=== PATIENT | male | born 1980 ===

== ENCOUNTER 2023-12-31 17:52 | Emergency (ER) | payer OTHER, SELFPAY ==
[2023-12-31 17:54] VITALS: BP 143/96
[2023-12-31] MEDS: DILAUDID 0.5 MG IV ×2 (18:52→19:53)
[2023-12-31] MEDS: ZOFRAN 4 MG IV (18:52)
--- NOTE | 2023-12-31 23:04 | ED.MUSCINJ ---
HPI-Injury
General
Chief Complaint: Musculo-Skeletal Complaint
Source: patient
Exam Limitations: none
Time Seen by Provider: 12/31/23 18:00
Nursing documentation reviewed up to this point in time: agreed with
Travel History
Have you had any contact with someone who has COVID-19?: No
Do you have any symptoms of coronavirus? Fever > 100 degrees, chills, cough, shortness of breath, sore throat, loss of taste or smell, muscle aches, or headache?: No
History of Present Illness-Injury
Is this injury a work related problem?: No
Is pt an associate of [facility]?: No
Initial Injury comments:
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 He fell backwards and twisted his ankle. Complains of pain and deformity to his right ankle. Injury occured just CUTTER OUT. Brought to ED via EMS for eval.
Past History
Past History
ED Past Medical History: Other (TBI)
ED Past Surgical History: None
Social History
Tobacco: Non-smoker
Alcohol: None
Drug: None
Review of Systems
Review of Systems
Allergies reviewed?: Yes
All Other Systems: ROS reviewed and negative except as documented in HPI and ROS
Constitutional: Reports no symptoms
EENT: Reports no symptoms
Respiratory: Reports no symptoms
Cardiac: Reports no symptoms
ABD/GI: Reports no symptoms
Musculoskeletal: Reports joint pain (Pain to right ankle)
Skin: Reports no symptoms
Neurological: Reports no symptoms
Psychiatric: Reports no symptoms
Musculoskeletal Injury Exam
Musculoskeletal Injury Exam
Right Ankle:
Pain with Movement?: Moderate
Tender to palpation?: Moderate
Soft tissue swelling?: Moderate
External deformity and angulation?: Moderate
Joint effusion?: None
Contusion?: None
Hematoma-local bleeding into tissue?: None
Strain- Sprain- Tear (Connective tissue injury)?: Moderate
Crepitus with movement?: No
Joint instability?: No
Malalignment/deformity?: Yes
Range of motion: Limited
Distal skin color and temperature: normal-warm & good color
Capillary Refill: normal
Normal distal neurovascular exam?: Yes
Peripheral Pulses: posterior tibial (right): 3+ and dorsalis pedis (right): 3+
Phy Exam
General Physical Exam
General Presentation: well appearing and no apparent distress
General age: appears stated age
General Skin: warm and dry
General Habitus: normal
General Mental: alert
Musculoskeletal Exam
Musculoskeletal Exam: neuro vasc intact and other (Achlles intact, no tenderness base of 5th, proximal tib/fib)
Skin Exam
Skin Exam: normal color, warm/dry and no rash
Psychiatric Exam
Psychiatric Exam: normal mood/affect
Injury Course
Orders/Labs/Results
Orders:
Orders
12/31/23 18:01
Ankle, Right 3 view CR [CR Ankle - Right Min 3 Views *] Urgent
Comment:
Reason For Exam: increased pain, decreased ROM, swelling
12/31/23 18:41
HYDROmorphone [Dilaudid] 0.5 mg IV NOW STA
Ondansetron Injectable [Zofran] 4 mg IV NOW STA
12/31/23 19:46
HYDROmorphone [Dilaudid] 0.5 mg IV NOW STA
12/31/23 19:56
Ankle, Right 2 view CR [CR Ankle - Right 2 Views] Stat
Comment: portable
Reason For Exam: post reduction
Procedures
Joint/Fracture Reduction
Right Ankle:
Indication for procedure:: Anterior dislocation distal tib
Joint reduced: without anesthesia
Injury was: closed
Further treatement: needs further treatment
Post reduction exam: stable
Capillary Refill: normal
Normal distal neurovascular exam?: Yes
Peripheral Pulses: posterior tibial (right): 3+ and dorsalis pedis (right): 3+
*Radiology
Radiology exam reviewed: radiology read reviewed
*Pulse Oximetry
Patient hypoxic: no
*Critical Care Note
Total Time (30-74mins, 75-104mins- exclusive of procedures): Not Applicable
Update Note
Update Note:
Patient has ortho thru [facility]. Will call in the AM for follow up. Placed in long leg posterior and stir-up splint
ED Attending Note
-
Portions of this chart may have been created with voice recognition software.� Occasional wrong word or��sound alike� substitutions may have occurred due to the inherent limitations of voice recognition software.
Discharge Plan
Departure
Patient Disposition: Home (Routine Discharge)
Date of Disposition: 12/31/23
Time of Disposition: 20:09
Patient with high blood pressure during this ER visit?: No
Condition: Good
Covid-19: Not Applicable
Discharge Problem:
Ankle fracture, Ankle dislocation
Instructions: How to Use Crutches, Ankle Fracture (DC), Ibuprofen, Using Cold for Pain
Referrals:
NONE,* [Family Provider] -
Activity Restrictions/Additional Instructions:
Follow up with your [place] orthopedic doctor in the AM. No weight bearing on your right leg. No driving.
Interventions
Interventions:
*Risk Screen - Suicide Last Done: 12/31/23 17:58
*General Assessment Last Done: 12/31/23 17:58
*Neglect/Abuse Screening Last Done: 12/31/23 17:58
ED- Fall Risk Assessment Last Done: 12/31/23 21:06
*ED COVID-19 Vaccine History Last Done: 12/31/23 17:58
*Nursing Disposition Last Done: 12/31/23 21:06
ED-Musculoskeletal Assessment Last Done: 12/31/23 17:59
Discharge Date and Time
Discharge Date/Time: 12/31/23 21:07
Print Language: [id number]
== END 2023-12-31 21:07 | disposition home or self-care (01) ==
LOC: EMR 17:52
PROVIDERS: EMERGENCY PHYSICIAN Emergency Medicine
DX: S82.51XA Displaced fracture of medial malleolus of right tibia, initial encounter for closed fracture (principal); S93.04XA Dislocation of right ankle joint, initial encounter; X50.1XXA Overexertion from prolonged static or awkward postures, initial encounter; Y93.64 Activity, baseball
CPT/HCPCS: 99284; 96374; 29505; 96375; 96376; 73600; 73610